=== PATIENT | male | born 1990 | race Caucasian/White ===

== ENCOUNTER 2022-01-24 11:39 | Emergency (ER) | payer MEDICAID ==
[~2022-01-24] VITALS: Ht 177.8 cm; Wt 84.1 kg
[2022-01-24 12:09] VITALS: BP 143/99
== END 2022-01-24 13:35 | disposition home or self-care (01) ==
LOC: ER 11:40
DX: M25.512 Pain in left shoulder (principal)
CPT/HCPCS: 73030; 99283